=== PATIENT | male | born 1985 | race Caucasian/White ===

== ENCOUNTER 2018-09-14 14:40 | Emergency (ER) | payer SELFPAY ==
[~2018-09-14] VITALS: Ht 177.8 cm; Wt 77.1 kg
[2018-09-14 15:25] VITALS: BP 181/75
--- NOTE | 2018-09-14 15:54 | PHYS DOC ---
Past Medical History Past Medical History: No Pertinent History Past Surgical History: No Surgical History Alcohol Use: None Drug Use: None Adult General Chief Complaint Chief Complaint: ABSCESS HPI HPI Patient is a 33 year old male who presents to the emergency department with complaints of a red, tender, swollen area to his lateral left elbow for the last 4-5 days. Patient states that he is concerned it as an infected spider bite. He reports bloody pus drainage recently. He denies any known injury. Patient denies any numbness, tingling, or limited range of motion of left elbow or. He denies any recent fevers. Review of Systems Review of Systems Constitutional: Denies fever or chills [] Musculoskeletal: Denies joint pain [] Integument: see HPI Neurologic: Denies headache, focal weakness or sensory changes [] All other systems were reviewed and found to be within normal limits, except as documented in this note. Current Medications Current Medications Current Medications Medications (Trade) Dose Ordered Sig/Sheyla Start Time Stop Time Status Last Admin Dose Admin Acetaminophen/ Hydrocodone Bitart (Lortab 5/325) 1 tab 1X ONCE 09/14/18 17:30 09/14/18 17:31 Lidocaine HCl (Xylocaine-Mpf 1% 2ml Vial) 6 ml 1X ONCE 09/14/18 16:00 09/14/18 16:01 DC Allergies Allergies Allergies Coded Allergies Type Severity Reaction Last Updated Verified Penicillins Allergy Unknown Anaphylaxis 09/14/18 Yes Sulfa (Sulfonamide Antibiotics) Allergy Unknown Anaphylaxis 09/14/18 Yes Physical Exam Physical Exam Constitutional: Well developed, well nourished, no acute distress, non-toxic appearance. [] HENT: Normocephalic, atraumatic, bilateral external ears normal, nose normal. [] Eyes: PERRLA, conjunctiva normal, no discharge. [] Skin: Warm, dry, Erythema, warmth, and swelling noted to left lateral forearm with a 2 cm dark area that is fluctuant and draining a small amount of bloody pus with pressure applied consistent with cellulitis and abscess. Back: No tenderness, no CVA tenderness. [] Extremities: No cyanosis, no clubbing, ROM intact, L forearm tenderness to palpation at site of abscess Neurologic: Alert and oriented X 3, normal motor function, normal sensory function, no focal deficits noted. [] Psychologic: Affect normal, judgement normal, mood normal. [] Current Patient Data Vital Signs Vital Signs Date Time Temp Pulse Resp B/P (MAP) Pulse Ox O2 Delivery O2 Flow Rate FiO2 09/14/18 15:25 98.4 110 18 181/75 (110) 100 Room Air 98.4 EKG EKG [] Radiology/Procedures Radiology/Procedures [] Course & Med Decision Making Course & Med Decision Making Pertinent Labs and Imaging studies reviewed. (See chart for details) dx: Left forearm abscess I&D of abscess as described below. Prescription written for clindamycin 600 mg by mouth 3 times a day 10 days, and hydrocodone 5/325 mg tablets #8 when necessary pain. Patient was instructed to leave the dressing that was placed in the ER on for the next 24 hours, then remove and apply a new bandage twice daily and as needed. Apply warm packs 3 times a day and as needed to help promote drainage. Return to the ER in 48 hours to have the wound rechecked and packing removed. Patient verbalized an understanding of home care, medications, follow-up, and return to ED instructions and was in agreement with the plan of care. [] Dragon Disclaimer Dragon Disclaimer This electronic medical record was generated, in whole or in part, using a voice recognition dictation system. Departure Departure Impression: Primary Impression: Abscess of left forearm Disposition: 01 HOME, SELF-CARE Referrals: NO PCP (PCP) Patient Instructions: Abscess, Care After Additional Instructions: Fill prescriptions and use as directed. Leave the dressing that was placed in the ER on for the next 24 hours, then remove and apply a new bandage twice daily and as needed. Apply warm packs 3 times a day and as needed to help promote drainage. Return to the ER in 48 hours to have the wound rechecked and packing removed. Scripts Hydrocodone Bit/Acetaminophen (HYDROCODONE-APAP 5-325 ) 1 Each Tablet 1 TAB PO PRN Q6HRS PRN for PAIN for 2 Days, #8 TAB 0 Refills Prov: DELMY GARDNER [employer] 09/14/18 Clindamycin Hcl (CLINDAMYCIN HCL) 300 Mg Capsule 2 CAP PO TID for 10 Days, #60 CAP 0 Refills Prov: DELMY GARDNER [employer] 09/14/18 Incision and Drainage Incision and Drainage : Site: left forearm Blade Size: 11 I & D Procedure: betadine prep, gauze wick placed Progress 1% lidocaine 6 ml was injected prior to I&D. Pt tolerated procedure well. A large amount of bloody pus was drained from the site, sterile gauze packing was inserted into the wound. Pt to return to ER in 48 hours for packing removal and wound recheck. DELMY GARDNER APRN Sep 14, 2018 15:54
[2018-09-14] MEDS ORDERED: LIDOCAINE 1% PF 2 ML VIAL. INJ ONE (16:00)
[2018-09-14] MEDS ORDERED: CLIN300C8 PO (17:14)
[2018-09-14] MEDS ORDERED: HYDR-2758 PO (17:14)
[2018-09-14] MEDS ORDERED: HYDROcodone/APAP 5/325MG 1 TAB TABLET PO ONE (17:30)
== END 2018-09-14 17:19 | disposition home or self-care (01) ==
LOC: ER 14:40
DX: L02.414 Cutaneous abscess of left upper limb (principal); Z88.0 Allergy status to penicillin; Z88.2 Allergy status to sulfonamides
CPT/HCPCS: 10060; 99283